=== PATIENT | female | born 1985 | race Caucasian/White ===

== ENCOUNTER 2022-05-03 14:08 | Emergency (ER) | payer MEDICAID, SELFPAY ==
--- NOTE | 2022-05-03 14:28 | ED_ITS ---
HPI - General Adult General Chief complaint: Upper Respiratory Symptoms Stated complaint: Strep throat Time Seen by Provider: 05/03/22 14:32 Source: patient Mode of arrival: ambulatory Limitations: no limitations History of Present Illness HPI narrative: 29-year-old female presents to the ER for evaluation of a sore throat worsening over the last 2 or 3 days. She states last night she was unable to sleep due to worsening swollen tonsils and pain. She states the pain is worse when she talks or swallows. The pain was radiating to the left ear. She denies any fever or chills. She is able to eat and drink but with pain. She denies any sick contacts. No other symptoms. MD complaint: Sore throat Onset (ago): day(s) (3) Location: mouth Radiation: other (left ear) Severity: severe Severity scale (1-10): 10 Quality: aching and sharp Pain Consistency: constant Relieving factors: none Exacerbating factors: eating Associated symptoms: headaches Treatments prior to arrival: none Related Data Previous Rx's Medication Instructions Recorded amoxicillin 875 mg-potassium 1 tab PO BID #20 tabs 05/03/22 clavulanate 125 mg tablet ibuprofen 600 mg tablet 600 mg PO TID PRN fever or pain 05/03/22 #20 tabs Allergies Allergy/AdvReac Type Severity Reaction Status Date / Time hydrocodone [From Vicodin] Allergy Mild UNKNOWN Verified 05/03/22 14:28 Review of Systems Review of Systems: Yes all other systems are reviewed and are negative PMFSH Past Medical History Medical History (Updated 05/03/22 @ 14:30 by GALINA Caraballo) Anxiety Hodgkin lymphoma Kidney stones Family History Family History (Updated 10/14/21 @ 14:53 by Lorraine Baird RN) Family/Other Breast cancer Family/Other Colon cancer Social History Social History (Updated 10/14/21 @ 14:48 by Lorraine Baird RN) Household Members: Children Housing: Apartment Are you a primary care management assistant to a significant other at home: No Do you presently have visiting nurse or other home services: No Patient Tobacco Use Status: Current everyday Tobacco user Tobacco use type: Cigarette Years Smoked: 21 e-Cigarette/Vaping Use: Never Used Advance Directives: No Physical Exam ED Vital Signs: Vital Signs - 24 hr 05/03/22 14:29 Temperature 98 F Pulse Rate 110 H Respiratory Rate 19 Blood Pressure 136/92 H Pulse Oximetry 98 Oxygen Delivery Method Room Air BMI result Body Mass Index 29.2 Appearance: Alert. Oriented X3. No acute distress. HEENT: normal external inspection. Tonsils are enlarged bilaterally with diffuse exudate, erythematous. Uvula midline. Normal voice, handling secretions normally. CVS: Normal heart rate and rhythm. Pulses normal. Respiratory: No respiratory distress. Lungs are clear throughout Skin: Skin warm and dry. Normal skin color. Normal skin turgor. No rashes. Extremities: normal inspection x4 Neuro: Oriented X 3. nonfocal Course Course Course Narrative: 37 yo female with history of Hodgkin lymphoma now in remission x 20 years presenting with sore throat x3 days. Exam is c/w strep throat. will treat accordingly. stable for d/c home with po abx and pain control. patient agrees with plan. Medical Decision Making Medical Decision Making [facility] Narrative: 29-year-old female presenting with sore throat for the last few days. Exam is within with strep throat, less likely retropharyngeal abscess or peritonsillar abscess Differential Diagnosis Differential Diagnoses: The differential diagnosis associated with the presentation includes Strep pharyngitis, viral pharyngitis, retropharyngeal abscess, peritonsillar abscess, COVID, flu, other viral etiology Prescription Management I considered prescription management with: Pain Medication, Antiviral and Antibiotic Critical Care Time Critical Care Time Critical Care Time: No Discharge Plan Discharge Clinical Impression: Strep throat Patient Disposition: Home, Self-Care Instructions: Strep Throat (ED) Additional Instructions: Take the prescribed antibiotics as directed. Complete the entire course. Do not miss any doses. Recommend using warm saltwater gargles 3 4 times per day. Recommend [id number] Chloraseptic spray and Cepacol lozenges to help with sore throat. Take prescribed anti-inflammatory pain medication every 8 hours. Take with food. Also recommend taking 970 mg of Tylenol every 6 hours around the clock. Rest and stay hydrated. Follow-up with your primary care doctor. If you develop new or worsening symptoms call 911 or come back to the ER for further evaluation. Prescriptions: New amoxicillin-pot clavulanate 875-125 mg tablet 1 tab PO BID Qty: 20 0RF ibuprofen 600 mg tablet 600 mg PO TID PRN (Reason: fever or pain) Qty: 20 0RF Stand Alone Forms: Work/School Release Interventions: ED Discharge Assessment Last Done: 05/03/22 14:42 Discharge Date/Time: 05/03/22 14:42
[2022-05-03 14:29] VITALS: BP 136/92; PULSE 110; RESP 19; TEMP 36.6; O2SAT 98; BMI 29.2
== END 2022-05-03 14:42 | disposition home or self-care (01) ==
LOC: HO.ED 14:36
PROVIDERS: Emergency Provider Student in an Organized Health Care Education/Training Program
DX: J02.0 Streptococcal pharyngitis (principal); F17.210 Nicotine dependence, cigarettes, uncomplicated
CPT/HCPCS: 99282; 99283